=== PATIENT | male | born 1965 | race Hispanic/Latino ===

== ENCOUNTER 2025-01-10 14:43 | Outpatient (CLI) | payer OTHER, SELFPAY ==
--- NOTE | ~2025-01-10 | CT_ITS ---
CT Scan of the Chest without Contrast: Clinical Indication: Lung cancer screening, nicotine dependence Technique: Contiguous sections were acquired throughout the chest without intravenous contrast. Dose reduction technique was used on this scan by utilizing automated exposure control and iterative recon struction technique. The dose-length product (DLP) was 392.61 mGy-cm. Findings: There is no evidence of any significant mediastinal, hilar or axillary lymphadenopathy. The mediastin al soft tissues appear normal. There is no evidence of pleural or pericardial effusion. There is advanced emphysema. Calcified left basilar granuloma present. Images through the upper abdomen reveal no abnormalities. Impression: Lung RADS 2: Benign appearance. 12 month follow-up screening CT advised. Advanced emphysema. Reviewed, dictated and finalized at location . Impression: Lung RADS 2: Benign appearance. 12 month follow-up screening CT advised. Advanced emphysema.
--- OUTSIDE RECORDS SUMMARY | 2025-01-10 16:41 | XMS_ITS | Encounter Summary ---
Author Organization [facility] Health Address [facility] [place] [address] Care Team Providers Care Shed Boss Name Role Phone Clarissa Horowitz MD Primary Care Provider [phone]- [phone] Awa Givens APRN-MONORAIL HELPER Primary Care Provider [phone] Amanuel Stanton PROFESSIONAL ARCHITECT-MONORAIL HELPER Unavailable [phone] Reason for Visit * Reason Onset Date Comments MEDICATION REFILL 11/10/2020 Encounter Details Date Type Department Care Team (Late st Contact Info) Description 11/10/2020 Refill [facility] Family and Community Medicine [address] [facility] 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 omeprazole (PRILOSEC) 20 MG capsule 90 capsule 1 Sig: Take 1 (one) capsule by mouth once daily ??? furosemide (LASIX) 20 MG tablet 90 tablet 3 Sig: Take 1 (one) tablet by mouth once daily ??? albuterol HFA (VENTOLIN HFA) 108 (90 Base) MCG/ACT inhaler 1 Inhaler 2 Sig: Inhale 2 (two) puffs by mouth every 6 hours as needed ??? dilTIAZem coated beads 24hr (CARDIZEM CD) 120 MG capsule 90 capsule 0 Sig: Take 1 (one) capsule by mouth once daily Do not crush or chew. Allergies Allergen Reactions ??? Morphine Other Violent behavior Last Refill:12/20/2019,02/04/2020,07/29/2020,08/14/2020 Qty Dispense:90,90,1inhal,90 # of Refills:1,3,2,0 Last OV:08/22/2020 Next OV:none documented in this encounter Plan of Treatment Not on file documented as of this encounter Visit Diagnoses Not on filedocumented in this encounter Care Teams Shed Boss Relationship Specialty Start Date End Date Clarissa Horowitz MD PCP - General 04/17/19 12/31/21 Awa Givens APRN-CATHRYN PCP - General 01/01/22 Amanuel Stanton APRN-MONORAIL HELPER [address] [place] [phone] PCP - Attributed-BCBS Medicaid [place] 11/24/23 documented as of this encounter
--- OUTSIDE RECORDS SUMMARY | 2025-01-10 16:41 | XMS_ITS | Encounter Summary ---
Author Organization [facility] Health Address [facility] [place] [place] [address] Care Team Providers Care Yard Associate Name Role Phone Clarissa Horowitz MD Primary Care Provider [phone]- [phone] Awa Givens APRN-EQUIPMENT OPERATOR/LABORER Primary Care Provider [phone] Amanuel Stanton PIZZA DELIVERY-EQUIPMENT OPERATOR/LABORER Unavailable [phone] Reason for Visit * Reason Onset Date Comments MEDICATION REFILL 01/24/2021 Encounter Details Date Type Department Care Team (Late st Contact Info) Description 01/24/2021 Refill [facility] [address] [place] [address] Edwin Velazquez MD [address] OF PULMONARY/[place] [address] MEDICATION REFILL Social History Tobacco Use Types [...] on file 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 Gender Identity Not on file Sexual Orientation Not on file 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
--- OUTSIDE RECORDS SUMMARY | 2025-01-10 16:41 | XMS_ITS | Encounter Summary ---
Author Organization [facility] Health Address [address] [place] [address] Care Team Providers Care Case Technician Name Role Phone Clarissa Horowitz MD Primary Care Provider [phone] Awa Givens APRN-SIDE LASTER STAPLE Primary Care Provider [phone] Amanuel Stanton VERTICA ARCHITECT-SIDE LASTER STAPLE Unavailable [phone] Reason for Visit * Reason Onset Date Comments MEDICATION REFILL 12/06/2020 Encounter Details Date Type Department Care Team (Late st Contact Info) Description 12/06/2020 Refill [facility] Family and Community Medicine [address] [facility] 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 omeprazole (PRILOSEC) 20 MG capsule 90 capsule 3 Sig: Take 1 (one) capsule by mouth once daily ??? furosemide (LASIX) 20 MG tablet 90 tablet 3 Sig: Take 1 (one) tablet by mouth once daily ??? albuterol HFA (VENTOLIN HFA) 108 (90 Base) MCG/ACT inhaler 1 Inhaler 3 Sig: Inhale 2 (two) puffs by mouth every 6 hours as needed ??? loratadine (CLARITIN) 10 MG tablet 90 tablet 3 Sig: Take 1 (one) tablet by mouth once daily ??? rosuvastatin (CRESTOR) 10 MG tablet 90 tablet 4 Sig: Take 1 (one) tablet by mouth once daily Allergies Allergen Reactions ??? Morphine Other Violent behavior Last Refill:11/11/2020 Qty Dispense:90,901 inhal,90,90 # of Refills:3,3,3,3,4 Last OV:08/22/2020 Next OV:none documented in this encounter Plan of Treatment Not on file documented as of this encounter Visit Diagnoses Diagnosis Other hyperlipidemia documented in this encounter Care Teams Case Technician Relationship Specialty Start Date End Date Clarissa Horowitz MD PCP - General 04/17/19 12/31/21 Awa Givens APRN-SIDE LASTER STAPLE PCP - General 01/01/22 Amanuel Stanton APRN-SIDE LASTER STAPLE [facility] [place] [address] PCP - Attributed-BCBS Medicaid [place] 11/24/23 documented as of this encounter
--- OUTSIDE RECORDS SUMMARY | 2025-01-10 16:41 | XMS_ITS | Encounter Summary ---
Author Organization [facility] Health Address [address] [facility] [place] [address] Care Team Providers Care Domestic Helper Name Role Phone Awa Givens Primary Care Provider [phone] Amanuel Stanton Unavailable [phone] Encounter Details Date Type Department Care Team (Late st Contact Info) Description 12/01/2022 Telephone [facility] - Centralized Scheduling [address] [place] [address] Awa Givens APRN-CNP [address] [address] Social History Tobacco Use Types Packs/Day Years Used Date Smoking Tobacco: Every Day Cigarettes 1.5 46.5 Started: 1976 Smokeless Tobacco: Never Comments:age 11/12-current, ave 1 ppd up to 2 ppd 11/13/22 Lung Cancer Screening Counseling Shared Decision Making Visit Documentation Alcohol Use Standard Drinks/Week Comments No 0 (1 standard drink = 0.6 oz pur e alcohol) special occasions PHQ-2 Answer Date Recorded PHQ2 TOTAL SCORE 0 11/13/2022 Sex and Gender Information Value Date Recorded Sex Assigned at Not on file Legal Sex Male 5:16 PM SHUTTLE HAND Gender Identity Not on file Sexual Orientation Not on file 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 documented in this encounter Plan of Treatment Not on file documented as of this encounter Visit Diagnoses Not on filedocumented in this encounter Care Teams Domestic Helper Relationship Specialty Start Date End Date Awa Givens APRN-CNP PCP - General 01/01/22 Amanuel Stanton APRN-CNP [address] [place] [phone] PCP - Attributed-BCBS Medicaid [place] 11/24/23 documented as of this encounter
--- OUTSIDE RECORDS SUMMARY | 2025-01-10 16:41 | XMS_ITS | Continuity of Care Document ---
Author Organization [facility] Address [address] [address] [place] [address] Phone Care Team Providers Care Senior Service Aide Name Role Phone Artur Covington MD Unavailable Unavailable Allergies, Adverse Reactions, Alerts Substance Reaction Status Criticality No Known Allergies Active No Inform ation Medications Medication Instructions Dosage Effective Dates (start - stop) Status Comments albuterol sulfate 2.5 mg/3 mL (0.083 %) solution for nebulization inhale 3 milliliter by nebulization route every 6 hours as needed 2.5 MG - Active PRN for sob diltiazem ER (XR/XT) 180 mg capsule,extended release 24 hr, controlled take 1 capsule by oral route every day 180 MG - Active furosemide 20 mg tablet take 1 tablet by oral route every day 20 MG - Active lisinopril 2.5 mg tablet take 1 tablet by oral route every day 2.5 MG - Active omeprazole 20 mg capsule,delayed release take 1 capsule by oral route every day before a meal 20 MG - Active Crestor 20 mg tablet take 1 tablet by or al route every day 20 MG - Active Spiriva with HandiHaler 18 mcg and inhalation capsules inhale by inhalation route every day the contents of one capsule (18 mcg) using 2 inhalations via handihaler 0.00 - Active Claritin 10 mg tablet take 1 tablet by o ral route every day 10 MG - Active albuterol sulfate HFA 90 mcg/actuation aerosol inhaler inhale 1 puff by inhalation route every 4 - 6 hours as needed as needed 1 puff - Active PRN for sob Procedures Procedure Date OFFICE/OUTPATIENT VISIT, EST OFFICE/OUTPATIENT VISIT, EST OFFICE/OUTPATIENT VISIT, EST PREV VISIT, NEW, AGE 40-64 Advance Directives Directive Yes / No Effective Date File Name No Information Encounters Encounter Description Practice Location Reason(s) For Visit Diagnoses Date Provider Providers Copied on Encounter OFFICE/OUTPA TIENT VISIT, [facility], [address], [place], [place], [id number], tel:[phone] [facility] GERD1 (chief complaint) COPD1 (chief complaint) HTN (chief complaint) sleep apnea1 (chief complaint) GERD w/o esophagitisCardiomy opathyCentrilobular emphysemaObstructiv e sleep apnea hypopneaMixed hyperlipidemia Adria Isaac [address], [place], [place], [id number] , [place]. tel:[phone] OFFICE/OUTPA TIENT VISIT, [facility], [address], [place], [place], [id number], [place] tel:[phone] [facility] HLP (chief complaint) glucose1 (chief complaint) polycythem ia1 (chief complaint) cardiomyop athy1 (chief complaint) GERD1 (chief complaint) COPD1 (chief complaint) Mixed hyperlipidemiaHyper glycemiaSecondary polycythemiaFolate deficiencyGERD w/o esophagitisCentrilo bular emphysemaCardiomyop athy Adria Isaac [address], [place], [place], [id number] , [place]. tel:[phone] OFFICE/OUTPA TIENT VISIT, [facility], [address] [place], [id number], [place] tel:[phone] [facility] COPD1 (chief complaint) heart1 (chief complaint) GERD1 (chief complaint) Centrilobular emphysemaCardiomyop athyGERD w/o esophagitis 5 Adria Isaac [address], [place], [place], [address] , [place]. [phone] PREV VISIT, NEW, AGE 40-64 [facility], [address], [place], [place], [address], tel:[phone] [facility] Medicine physical (chief complaint) Encounter for general adult medical examination without abnormal findings 5 Adria Siddiqui. [address], [place], [place], [address] , [place]. tel:[phone] Family History Family Member Type Diagnosis Age At Onset Father Problem Alive and well Sister Problem Diabetes mellitus Mother Problem of DM complication 66 Payers Payer name Insurance type Covered green party ID Mendy mendoza(s) [facility] CI [id number] Social History Type Description Quantity Date Captured Comments Alcohol Use Details No Caffeine Use Details Unknown Tobacco Use Status Heavy cigarette smok er (20-39 cigs/day) Smoking Status Heavy tobacco smoker Sex Male Vital Signs Date / Time: Height Weight BMI Pulse Rate Blood Pressure Temperature Respiratory Rate Body Surface Area Head Circumference BMI percentile Pulse Ox Inhaled Ox 5:22 PM 71.00 in 286.20 lbs 39.9 2 kg/m eter (2) 97 /min 120/68 mm[Hg] 98.2 F 16 /min Chief Complaint And Reason For Visit From encounter dated '12/27/2024 17:16'. GERD1 (chief complaint). Description: Pt has chronic GERD Pt doing ok with omeprazole. Pt has not scheduled for EGD yet COPD1 (chief complaint). Description: Pt has COPD due to smoking Pt uses spiriva daily. Pt needs albuterol neb refilled. Pt denies any hemoptysis, cough. Pt feels sob frequently HTN (chief complaint). Description: Pt has HTN with cardiomyopathy. Pt is on diltiazem lasix and lisinopril. Pt denies any chest pain Pt has kianna with cardiology next week sleep apnea1 (chief complaint). Description: Pt has sleep apnea Pt uses cpap nightly and doing ok Plan Of Treatment Date Type Action Status Referral Referred To: Medhat MOMIN, Irma Rich [address] [facility]
[address] [place], [place], [id number] Ordered: Referrals: Medhat MOMIN, Irma Rich. Evaluate and treat ordered Referral Ordered: CT THORAX W/O DYE ordered Referral Referred To: Nathen Black [address] [place], [phone] Ordered: Referrals: Nathen Black. Evaluate and treat ordered Referral Ordered: Cardiology (related to Encounter for general adult medical examination without abnormal findings) ordered Referral Ordered: Pulmonology (related to Encounter for general adult medical examination without abnormal findings) ordered Referral Ordered: Referrals: Cardiology. Evaluate and treat ordered Referral Ordered: OPERATIVE UPPER GI ENDOSCOPY ordered Referral Ordered: Referrals: Pulmonology. Evaluate and treat ordered History Of Present Illness Encounter Date Complaint History Of Prese nt Illness GERD1 Pt has chronic G ERD Pt doing ok with omeprazole. Pt has not scheduled for EGD yet COPD1 Pt has COPD due to smoking Pt uses spiriva daily. Pt needs albuterol neb refilled. Pt denies any hemoptysis, cough. Pt feels sob frequently HTN Pt has HTN with cardiomyopathy. Pt is on diltiazem lasix and lisinopril. Pt denies any chest pain Pt has kianna with cardiology next week sleep apnea1 Pt has sleep music engineer ea Pt uses cpap nightly and doing ok COPD1 Pt has not start ed spiriva yet .Pt is using left over trelegy which is not covered by insurance. Pt denies any worsening sob GERD1 Pt has chronic G ERD. Pt takes omeprazole and doing ok cardiomyopathy1 Pt has cardiomyo any. Pt is on lisinopril, lasix and diltiazem Pt has cardiomyopathy. Pt denies any chest pain Pt has not made kianna with cardiology yet. Pt is slightly tachycardic today. Pt sam any palpitation polycythemia1 pt has polycythe lanie. Pt has sleep apnea and he uses cpap nightly. pt feels more energy and less snoring glucose1 Pt has mildly h igh glucose and low folate .Pt denies any polyuria, polydipsia. HLP Pt has HLP Pt is not on any diet COPD1 Pt has COPD Pt d id not mushroom picker spiriva yet Pt has been using albuterol MDI and neb treatment frequently. Pt has not made kianna with pulmonary yet GERD1 Pt has chronic G ERD pt is on omeprazole and doing ok Pt has not set up EGD yet heart1 Pt has cardiomyo any. Pt is on lisinopril, lasix and diltiazem Pt has cardiomyopathy. Pt denies any chest pain Pt has not made kianna with cardiology yet. Pt is slightly tachycardic today. Pt sam any palpitation physical Pt needs annual physical. Pt has COPD. Pt is on trelegy, albuterol PRn Pt used to see pulmonary Pt has chronic GERD Pt takes omeprazole and doing ok Pt has HTn and LE edema Pt takes lisinopril and lasix and diltiazem. Pt has enlarged heart and he used to see intraoperative neuro tech. Pt has not seen his PCP and his intraoperative neuro tech and pulmonary doctor for more than one year due to insurance issue. Pt has not been on any of medication for a while due to insurance issue pt denies any chest pain or sob Instructions Date Instruction Additional Infor mation No Information Assessments Type Assessment Date assessment GERD w/o esophagitis assessment Cardiomyopathy assessment Centrilobular emphysema 025 assessment Obstructive sleep apnea hypopnea assessment Mixed hyperlipidemia Mental Status Date Cognitive Assessment Orientation - [place] ed to time, place, person, situation.
--- OUTSIDE RECORDS SUMMARY | 2025-01-10 16:41 | XMS_ITS | Encounter Summary ---
Author Organization [facility] Health Address [address] [facility] [place] [address] Care Team Providers Care Dial Painter Name Role Phone Clarissa Horowitz MD Primary Care Provider [phone] Awa Givens APRN-COSMETICS PRESSER Primary Care Provider [phone] Amanuel Stanton CANOE BUILDER-COSMETICS PRESSER Unavailable [phone] Reason for Visit * Reason Onset Date Comments MEDICATION REFILL 01/24/2021 Encounter Details Date Type Department Care Team (Late st Contact Info) Description 01/24/2021 Refill [facility] Family and Community Medicine [address] [facility] 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
--- OUTSIDE RECORDS SUMMARY | 2025-01-10 16:41 | XMS_ITS | Clinical Summary ---
Author Organization [facility] Address [address] [place] [address] Care Team Providers Care Hat Renovator Name Role Phone Artur Covington MD Primary Care Provider [phone] Encounters Date Type Department Care Team Description [facility]20[facility] [address] Darlene Walter, RMRosa Consult from Last 3 Months Social History Tobacco Use Types Packs/Day Years Used Date Smoking Tobacco: Never Assessed Sex and Gender Information Value Date Recorded Sex Assigned at Not on file Legal Sex Male 7:37 PM CDT Gender Identity Not on file Sexual Orientation Not on file Plan of Treatment Health Maintenance Due Date Last Done Comments Colorectal Cancer Screening Colonoscopy (10 Years) 1967 Annual Physical 12/13/1970 Hepatitis C 12/13/1985 DTaP, Tdap and Td Vaccines ( 1 - Tdap) 12/13/1986 Hepatitis B Vaccines (1 of 3 - 19+ 3-dose series) 12/13/1986 Pneumococcal Vaccine: 50+ Ye ars (1 of 1 - PCV) 12/13/2017 Zoster Vaccines (1 of 2) 12/13/2017 COVID-19 Vaccine (2023-2 5 season) 2024 Meningococcal B Vaccine Aged Out No l onger eligible based on patient's age to complete this topic Meningococcal Vaccine Aged Out No jeff clarisse eligible based on patient's age to complete this topic RSV Immunizations Under 20 Months Aged Out No longer eligible based on patient's age to complete this topic Insurance [facility] C/O PROVIDER [place] [id number] Care Teams Hat Renovator Relationship Specialty Start Date End Date Artur Covington MD [address] [place] [address] PCP - General FAMILY PRACTICE 10/20/24
--- OUTSIDE RECORDS SUMMARY | 2025-01-10 16:41 | XMS_ITS | Encounter Summary ---
Author Organization [facility] Health Address [address] [place] [address] Care Team Providers Care Assurance Senior Manager Name Role Phone Awa Givens Primary Care Provider [phone] Amanuel Stanton Unavailable [phone] Encounter Details Date Type Department Care Team (Late st Contact Info) Description 12/08/2022 Telephone [facility] - Family Medicine [address] [place] [address], [facility] [place] [address] Awa Givens APRN-CNP [address] [place] [phone] Social History Tobacco Use Types Packs/Day Years [...] on file 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 lisinopril (Prinivil; Zestril) 5 MG tablet 90 tablet 1 Sig: Take 1 (one) tablet by mouth once daily Allergies Allergen Reactions ??? Morphine Other Violent behavior Last Refill:05/14/2022 Qty Dispense:90 # of Refills:1 Last OV:11/13/2022 Next OV:none * Telephone Encounter - Sophia Figueroa - 12/08/2022 1:06 PM CDT Patient called in requesting a Med refill. Drug type: lisinopril (Prinivil; Zestril) 5 MG tablet Pharmacy: [id number] [facility] [id number] Patient call back number: [phone] or Kimmy [phone] documented in this encounter Plan of Treatment Not on file documented as of this encounter Visit Diagnoses Diagnosis Essential hypertension documented in this encounter Care Teams Assurance Senior Manager Relationship Specialty Start Date End Date Awa Givens APRN-CNP PCP - General 01/01/22 Amanuel Stanton APRN-CNP [address] [place] [phone] PCP - Attributed-BCBS Medicaid [place] 11/24/23 documented as of this encounter
--- OUTSIDE RECORDS SUMMARY | 2025-01-10 16:41 | XMS_ITS | Encounter Summary ---
Author Organization [facility] Health Address [facility] [place] [address] Care Team Providers Care Laser Machine Operator Name Role Phone Clarissa Horowitz MD Primary Care Provider [phone]- [phone] Awa Givens APRN-PREFITTER Primary Care Provider [phone] Amanuel Stanton GIS DEVELOPER-PREFITTER Unavailable [phone] Encounter Details Date Type Department Care Team (Late st Contact Info) Description 12/24/2020 Telephone [facility] [address] [place] [address], [place] [id number] Ludmila Garcia MD [address] [place] [address] 2L DIV OF PLASTIC SURGERY [place], [place] [id number] Social History Tobacco Use Types Packs/Day Years [...] on file Legal Sex Male 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 Thank you so much! documented in this encounter Plan of Treatment Not on file documented as of this encounter Visit Diagnoses Not on filedocumented in this encounter Care Teams Laser Machine Operator Relationship Specialty Start Date End Date Clarissa Horowitz MD PCP - General 04/17/19 12/31/21 Awa Givens APRN-PREFITTER PCP - General 01/01/22 Amanuel Stanton APRN-PREFITTER [facility] [place] [address] PCP - Attributed-[place] 11/24/23 documented as of this encounter
--- OUTSIDE RECORDS SUMMARY | 2025-01-10 16:41 | XMS_ITS | CONTINUITY OF CARE DOCUMENT ---
Author Name alfredo fuentes Address Unknown Organization [facility] Office Address [address] [place] [address] [address] [place] [address] Phone [phone] Care Team Providers Care Diesel Locomotive Firer/Fireman Name Role Phone Joan MOMIN, [place] Unavailable MARVIN WEAVER MD Unavailable [phone] MARVIN WEAVER MD Unavailable [phone] INSURANCE PROVIDERS Payer name Policy type / Coverage type [place] red constitution party ID [facility] [id number]
--- OUTSIDE RECORDS SUMMARY | 2025-01-10 16:41 | XMS_ITS | Encounter Summary ---
Author Organization [facility] Health Address [facility]3 [facility] [place] [address] Care Team Providers Care Patrol Police Sergeant Name Role Phone Clarissa Horowitz MD Primary Care Provider [phone]- [phone] Awa Givens APRN-CRM TECHNICAL LEAD Primary Care Provider [phone] Amanuel Stanton APRN-CRM TECHNICAL LEAD Unavailable [phone] Reason for Visit * Reason Onset Date Comments MEDICATION REFILL 12/06/2020 Encounter Details Date Type Department Care Team (Late st Contact Info) Description 12/06/2020 Refill [facility] [address] [facility] 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
--- OUTSIDE RECORDS SUMMARY | 2025-01-10 16:41 | XMS_ITS | Encounter Summary ---
Author Organization [facility] Health Address [facility] [facility] [place] [address] Care Team Providers Care Company Driver Name Role Phone Clarissa Horowitz MD Primary Care Provider [phone] Awa Givens APRN-SUPERVISOR ACOUSTICAL TILE CARPENTERS Primary Care Provider [phone] Amanuel Stanton SAFE DEPOSIT ATTENDANT-SUPERVISOR ACOU[employer] CARPENTERS Unavailable [phone] Reason for Visit * Reason Onset Date Comments MEDICATION REFILL 12/06/2020 Encounter Details Date Type Department Care Team (Late st Contact Info) Description 12/06/2020 Refill [facility] [address] [facility] [address] [place] [address] Clarissa Horowitz MD [address] [facility] [address] 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
--- OUTSIDE RECORDS SUMMARY | 2025-01-10 16:41 | XMS_ITS | Encounter Summary ---
Author Organization [facility] Health Address [facility]3 [facility] [place] [address] Care Team Providers Care Assistant Commissioner Name Role Phone Clarissa Horowitz MD Primary Care Provider [phone]- [phone] Awa Givens APRN-FANCY WIRE DRAWER Primary Care Provider [phone] Amanuel Stanton PICTURE BOOKER-FANCY WIRE DRAWER Unavailable [phone] Reason for Visit * Reason Onset Date Comments MEDICATION REFILL 11/10/2020 Encounter Details Date Type Department Care Team (Late st Contact Info) Description 11/10/[address] 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
--- OUTSIDE RECORDS SUMMARY | 2025-01-10 16:41 | XMS_ITS | Encounter Summary ---
Author Organization [facility] Health Address [address] [facility] [place] [address] Care Team Providers Care Grinding Supervisor Name Role Phone Clarissa Horowitz MD Primary Care Provider [phone]- [phone] Awa Givens APRN-AIR BAG CURER Primary Care Provider [phone] Amanuel Stanton ORACLE ENGINEER-AIR BAG CURER Unavailable [phone] Reason for Visit * Reason Onset Date Comments MEDICATION REFILL 11/12/2020 Encounter Details Date Type Department Care Team (Late st Contact Info) Description 11/12/2020 Refill [facility] [address] [facility] 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
--- OUTSIDE RECORDS SUMMARY | 2025-01-10 16:41 | XMS_ITS | Clinical Summary ---
Author Organization [facility] Address [address] [place] [address] Care Team Providers Care Brine Tank Tender Name Role Phone Awa Givens APRN-CATHRYN Primary Care Provider [phone] Amanuel Stanton APRN-CATHRYN Unavailable [phone] Source Comments [facility],non-owned Affiliates and Associated Physician Practices is amultiple site organization consisting of ambulatory clinics and hospital sitesin [place], [place], [place] and [place]. This disclosure is being madepursuant to the Care Everywhere program and may not contain all information available regarding this patient. Last updated 18.[facility] Allergies Active Allergy Reactions Criticality Noted Date Comments Morphine Other Low 03/22/2015 Violent behavior Medications * Be aware that medications may not be up to date on this document. Alwaysverify current medications with the patient. albuterol HFA (VENTOLIN HFA) 108 (90 BASE) MCG/ACT inhaler Inhale 2 puffs by mouth q4h PRN (Wheezing). 18 g 11 7 Active fluticasone propionate (FLONASE) 50 MCG/ACT nasal spray USE 1 SPRAY INTO EACH NOSTRIL TWICE DAILY 0 Active albuterol (Proventil;Ventol in) (2.5 MG/3ML) 0.083% nebulizer solutionIndicatio ns:Bronchospasm Inhale 2.5 (two and one-half) mg by mouth 4 times daily as needed for Shortness of Breath or Wheezing Reasons: Spasm of Lung Air Passages 75 mL 11 2 Active rosuvastatin (Crestor) 20 MG tablet Take 1 (one) tablet by mouth once daily 90 tablet 3 Active famotidine (Pepcid) 20 MG tablet Take 1 (one) tablet by mouth at bedtime 90 tablet 4 3 Active omeprazole (PriLOSEC) 20 MG capsule Take 1 (one) capsule by mouth once daily 90 capsule 3 Active loratadine (Claritin) 10 MG tablet TAKE 1 TABLET BY MOUTH EVERY DAY 90 tablet 1 3 Active Fluticasone-Umecl idin-Vilant (Trelegy Ellipta) 100-62.5-25 MCG/ACT Inhale 1 (one) puff by mouth once daily 2 Each 5 3 Active albuterol HFA (Proventil; Ventolin; Proair) 108 (90 Base) MCG/ACT inhalerIndication s:Chronic obstructive pulmonary disease, unspecified COPD type (HCC) Inhale 2 (two) puffs by mouth every 6 hours as needed 18 g 11 3 Active dilTIAZem coated beads 24hr (Cardizem CD) 120 MG capsule TAKE 1 CAPSULE BY MOUTH EVERY DAY. DO NOT CRUSH OR CHEW 90 capsule 3 3 Active furosemide (Lasix) 20 MG tablet TAKE 1 TABLET BY MOUTH EVERY DAY 90 tablet 1 3 Active lisinopril (Prinivil; Zestril) 5 MG tabletIndications :Essential hypertension TAKE 1 TABLET BY MOUTH EVERY DAY 90 tablet 1 3 Active Active Problems Problem Noted Date Diagnosed Date Chronic bronchitis, unspecified chronic bronchit is type 05/14/2022 Cubital tunnel syndrome on left 11/13/2020 Arthritis of carpometacarpal (CMC) joint of left thumb 11/13/2020 Bilateral carpal tunnel syndrome 11/14/2019 Chronic fatigue 12/06/2017 Nocturia 12/06/2017 Tubular adenoma of colon 09/08/2017 Overview (10/25/2017): Repeat colonoscopy recommended July 2018 Mononeuropathy of upper extremity 09/08/2017 Diverticulosis of large intestine without hemorr sushil 09/08/2017 Overview (12/06/2017): Overview: Confirmed on colonoscopy Radiculopathy of cervical region 06/22/2017 Overview (10/25/2017): S/p surgical intervention Lv hypertrophy, hypertensive, without heart fail ure 03/10/2017 Overview (12/06/2017): Overview: EF 58% on 01/2017. Shunt, possibly from PFO noted. 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 Seeing cards Right to left cardiac shunt 07/24/2016 Overview (12/06/2017): Overview: Noted on Echo in 2014. Seeing cards Tobacco abuse 05/20/2016 Hyperlipidemia 03/25/2016 Obstructive sleep apnea 02/03/2016 Overview (10/25/2017): Severe RAPHAEL with hypoxemia. Patient to be on CPAP with side flow O2 Chronic obstructive pulmonary disease 02/03/2016 Prediabetes 10/17/2015 Other forms of dyspnea 05/17/2015 Gastro-esophageal reflux disease without esophag itis 01/30/2014 Guyon syndrome, left Immunizations Immunization Administration Dates Next Due [employer] primary monoval ent 12+ yr 0.3mL Purple cap 03/10/2021,02/17/2021 FLU VACCINE TRI IIV3 SPLIT PF IM (FLUVIRIN) 05/27 INFLUENZA VACCINE 06/05/2015 INFLUENZA VACCINE, CELL CULT URE, QUADR. (FLUCELVAX QUADRIVALENT; 6MO+) (CCIIV4) 05/19/2020,05/21/2019 INFLUENZA VACCINE, QUADR. (F LUZONE; FLULAVAL; FLUARIX; AFLURIA QUADRIVALENT; 6MO+), 0.5 ML (IIV4) 05/03/2023 PNEUMOCOCCAL PCV20 CONJ VAC IM 05/03/2023,2022 PNEUMOCOCCAL PPSV23 06/05/2015 TDAP (7yrs+) 03/26/2008 Family History Medical History Relation Name Comments Other Brother carpal tunnel; Status: Alive Seizures Daughter 1 Status: Alive None Known Daughter 2 Status: Alive None Known Daughter 3 Status: Alive Heart Disease Father Status: Alive Cancer Maternal Grandfather lung; S tatus: Asthma Mother Status: d CVA Mother Diabetes Mother Diabetes Sister 1 Status: Alive Other Sister 2 carpal tunnel; Status: Alive Other Son 1 cyst on brain; Status: Alive Asthma Son 2 Status: Alive None Known Son 3 Status: Alive Thyroid Disease Neg Hx Relation Name Status Comments Brother Alive Daughter 1 Alive Daughter 2 Alive Daughter 3 Alive Father Alive Maternal Grandfather Mother Sister 1 Alive Sister 2 Alive Son 1 Alive Son 2 Alive Son 3 Alive Social History Tobacco Use Types Packs/Day Years Used Date Smoking Tobacco: Every Day Cigarettes 2 46.5 Started: 1978 Smokeless Tobacco: Never Tobacco Cessation:Ready to Q uit: Not Asked; Counseling Given: Not Answered Comments:age [age]-current, ave 1 ppd up to [...] on file Legal Sex Male 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 Gender Identity Not on file Sexual Orientation Not on file 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 on file Not on file Last Filed Vital Signs Vital Sign Reading Time Taken Comments Blood Pressure 108/76 05/03/2023 3:38 PM CDT Pulse 98 05/03/2023 3:38 PM CDT Temperature 36.3 C (97.3 F) 11/13/2022 11:00 AM CDT Respiratory Rate 17 05/03/2023 3:38 PM CDT Oxygen Saturation 88% 05/03/2023 3:38 PM CDT Inhaled Oxygen Concentration 21% 02/07/2021 1 2:55 PM CDT Weight 120.7 kg (266 lb) 05/03/2023 3:38 PM CDT Height 180.3 cm (5' 11) 05/03/2023 3:38 PM CDT Body Mass Index 37.1 05/03/2023 3:38 PM CDT Plan of Treatment Health Maintenance Due Date Last Done Comments COLOGUARD (AGES 45-75) - COLON CA SCREENING 1965 CT COLONOGRAPHY - COLON CA SCREENING 1965 FIT - COLON CA SCREENING 1965 FLEX SIG - COLON CA SCREENING 1965 HEPATITIS B VACCINE (1 of 3 - 19+ 3-dose series) 12/13/1986 ZOSTER VACCINE (1 of 2) 12/13/2017 DTAP/TDAP/TD VACCINES (2 - Td or Tdap) 03/26/2018 03/26/2008 LUNG CANCER SCREENING 11/25/2023 11/24/2022 COVID-19 VACCINE (3 - season) 2024 03/10/2021, 02/17/2021 DEPRESSION SCREENING 07/26/2024 11/13/2022 INFLUENZA VACCINE (Season Ended) 2025 05/03/2023, 05/19/2020, 05/21/2019, Additional history exists SCREENING FOR DIABETES 11/13/2025 , 11/13/2022, 08/22/2020, Additional history exists COLON MONITORING 01/29/2031 01/29/2021, 01/29/2021 COLONOSCOPY - COLON CA SCREENING 01/29/2031 01/29/2021, 01/29/2021 Colorectal Cancer Screening 01/29/2031 HEPATITIS C SCREENING Completed 08/22/2020 HIV SCREENING Completed 11/13/2022 PNEUMOCOCCAL VACCINE 50+ Completed 023, 01/21/2023, 06/05/2015 HIB VACCINE Aged Out No longer eligi ble based on patient's age to complete this topic HPV VACCINE Aged Out No longer eligi ble based on patient's age to complete this topic MENINGOCOCCAL (Group B) VACCINE SHARED DECISION-MAKING Aged Out No longer eligible based on patient's age to complete this topic MENINGOCOCCAL GROUPS A/C/Y/W VACCINE Aged Out No longer eligible based on patient's age to complete this topic Procedures Procedure Name Priority Date/Time Associated Diagnosis Comments CT LUNG SCREEN LOW DOSE Routine 11/24/2022 3:45 PM CDT Tobacco abuse HEMOGLOBIN A1C Routine 11/13/2022 12:19 PM CDT Prediabetes Essential hypertension HIV-1 HIV-2 ANTIBODY + HIV P24 AG PANEL Routine 11/13/2022 12:19 PM CDT Encounter for health-related screening ENDOSCOPY, COLON, SCREENING Routine 01/29/2021 11:11 AM CDT HEPATITIS C AB SCREEN RFLX NAAT QUANT Routine 08/22/2020 2:19 PM WRAPAROUND FACILITATOR Well adult exam from Last 3 Months or Most Recently Relevant to Health Maintenance Results * CT LUNG CANCER SCREEN LOW DOSE (11/24/2022 3:45 PM CDT) Anatomical Region Laterality Modality Chest Computed Tomogra phy 11/24/2022 4:51 PM CDT Impressions 11/24/2022 5:02 PM CDT Impression 1. No acute process identified in the chest. No suspicious pulmonary nodules, lung RADS 1 (benign). Recommend follow-up with annual low-dose CT. ACR Lung-RADS Category/Recommendations: 0: Need prior comparisons or additional images 1: Negative: 12 month follow up LDCT (Low Dose CT) 2: Benign Appearin month follow up LDCT 3: Probably Benign: 6 month follow up LDCT 4A: Suspicious: 3 month follow up LDCT (or immediate PET if >7mm solid component) 4B: Suspicious: Immediate Chest CT or PET if >7mm solid component 4X: Cat 3 or 4A nodules with additional suspicious findings Modifier-S: Significant NON-lung cancer findings Modifier-C: Prior treated Lung Cancer. For details of the ACR Lung-RADS program, categories and recommendations: 1) https://www.acr.org/Quality-Safety/Resources/LungRADS 2) Internet search: Lung-RADS Lung Cancer Screening 3) Contact [facility] thoracic nurse coordinator ([phone]) > Interpreting Provider: Deric Bryant MD on 11/24/2022 5:02 PM Narrative 11/24/2022 5:02 PM CDT PROCEDURE: CT LUNG SCREEN LOW DOSE DATE/TIME OF EXAM: 11/24/2022 3:45 PM CLINICAL INFORMATION: None relevant/not provided if blank. Indication: Z72.0: Tobacco abuse COMPARISON: CT chest from 02/06/2014. TECHNIQUE: CT of the chest was performed without intravenous contrast utilizing low dose protocol. FINDINGS: The trachea is patent and midline. There is no significant mediastinal, hilar or axillary lymphadenopathy. Calcified left hilar and infrahilar lymph nodes represent sequela of prior granulomatous disease. The aorta is normal in course and caliber. Minimal atherosclerotic calcifications are noted in the aortic arch. The pulmonary artery is normal in caliber. The lungs are emphysematous. A nodular density is noted in the lingula (image 112, series 6), similar to prior examination from 2013, likely represents nodular scarring. A calcified granuloma is present in the left lower lobe. No focal consolidations are present. There is no pleural effusion or pneumothorax. The cardiac chambers are normal in size. No pericardial fluid or thickening is present. Bones and Chest Wall: Bone windows demonstrate no suspicious lytic or blastic lesions. The visible osseous structures are intact. Upper Abdomen: The visible portions of the upper abdominal viscera appear normal. Procedure Note Charlotte Bryant MD - 11/24/2022 PROCEDURE: CT LUNG SCREEN LOW DOSE DATE/TIME OF EXAM: 11/24/2022 3:45 PM CLINICAL INFORMATION: None relevant/not provided if blank. Indication: Z72.0: Tobacco abuse COMPARISON: CT chest from 02/06/2014. TECHNIQUE: CT of the chest was performed without intravenous contrast utilizing low dose protocol. FINDINGS: The trachea is patent and midline. There is no significant mediastinal, hilar or axillary lymphadenopathy. Calcified left hilar and infrahilar lymph nodes represent sequela of prior granulomatous disease. The aorta is normal in course and caliber. Minimal atherosclerotic calcifications are noted in the aortic arch. The pulmonary artery isnormal in caliber. The lungs are emphysematous. A nodular density is noted in the lingula (image 112, series 6), similar to prior examination from 2013, likely represents nodular scarring. A calcified granuloma is present in theleft lower lobe. No focal consolidations are present. There is no pleural effusion or pneumothorax. The cardiac chambers are normal in size. No pericardial fluid orthickening is present. Bones and Chest Wall: Bone windows demonstrate no suspicious lytic or blastic lesions. The visible osseous structures are intact. Upper Abdomen: The visible portions of the upper abdominal viscera appear normal. Impression 1. No acute process identified in the chest. No suspicious pulmonary nodules, lung RADS 1 (benign). Recommend follow-up with annual low-doseCT. ACR Lung-RADS Category/Recommendations: 0: Need prior comparisons or additional images 1: Negative: 12 month follow up LDCT (Low Dose CT) 2: Benign Appearin month follow up LDCT 3: Probably Benign: 6 month follow up LDCT 4A: Suspicious: 3 month follow up LDCT (or immediate PET if >7mm solid component) 4B: Suspicious: Immediate Chest CT or PET if >7mm solid component 4X: Cat 3 or 4A nodules with additional suspicious findings Modifier-S: Significant NON-lung cancer findings Modifier-C: Prior treated Lung Cancer. For details of the ACR Lung-RADS program, categories andrecommendations: 1) https://www.acr.org/Quality-Safety/Resources/LungRADS 2) Internet search: Lung-RADS Lung Cancer Screening 3) Contact [facility] thoracic nurse coordinator ([phone]) > Interpreting Provider: Deric Bryant MD on 11/24/2022 5:02 PM Awa Givens APRNCATHRYN CT ORDERABLES Final Res ult * HIV-1 HIV-2 ANTIBODY + HIV P24 AG PANEL (New on 12/09) (11/13/2022 12:19 PM CDT) HIV Antigen/Antibod y 1 & 2 Non-reacti ve Non-react [place] 11/13/2022 1:32 PM CDT [facility] Comment:No Laboratory eviden ce of HIV infection. Blood BLOOD SPECIMEN / Unknown Lab Venipuncture / Unknown 11/13/2022 12:19 PM CDT 11/13/2022 12:35 PM CDT Awa Givens APRN-PRIMER POWDER BLENDER WET LAB - CHEMISTRY ORDERABLE S Final Result [facility] [address] [place] [phone], [facility] [phone] * (ABNORMAL) HEMOGLOBIN A1C (11/13/2022 12:19 PM CDT) Hemoglobin A1c 6.0(H) <=5.6 % 11/13/2022 2:59 PM CDT [facility] Estimated Average Glucose 126 mg/dL 11/13/2022 2:59 PM CDT [facility] Comment: HbA1c Interpretation: Normal : < 5.7% Pre-diabetes: 5.7-6.4% Diabetes: Equal to or greater than 6.5% Test results diagnostic of diabetes should be repeated for confirmation. Treatment target values recommended by ADA and other clinical organizations should be used to evaluate metabolic control in patients. Reference: [place] Diabetes Association, Standards of Care in Diabetes -2020 In patients 70 years and older consider HbA1c target range of 7.0-7.5% (Reference: Jose Lee et al. GRADY. 2012) The Sebia assay for the measurement of HbA1c is a National Glycohemoglobin Standardization Program (NGSP) certified method. Blood BLOOD SPECIMEN / Unknown Lab Venipuncture / Unknown 11/13/2022 12:19 PM CDT 11/13/2022 12:40 PM CDT Awa Givens ANIMAL RIDES MANAGER-PRIMER POWDER BLENDER WET LAB - CHEMISTRY ORDERABLE S Final Result [facility] [address] [place] [address], [facility] [phone] * ENDOSCOPY, COLON, SCREENING (01/29/2021 11:11 AM CDT) Report Endoscopy POC Endoscopy Department Report _ Patient Name: Slick No Procedure Date: 01/29/2021 11:11 AM Date of : 1965 Classification: Outpatient Gender: Male Ethnicity: or Race: White _ Providers: Baron Leblanc MD, Yandel Lion (Fellow) Referring MD: Clarissa Horowitz MD Procedure: Colonoscopy Indications: Screening for colorectal malignant neoplasm Medications: Monitored Anesthesia Care Description of Procedure: Pre-Anesthesia Assessment: - Prior to the procedure, a History and Physical was performed, and patient medications and allergies were reviewed. The patient's tolerance of previous anesthesia was also reviewed. The risks and benefits of the procedure and the sedation options and risks were discussed with the patient. All questions were answered, and informed consent was obtained. Prior Anticoagulants: The patient has taken no previous anticoagulant or antiplatelet agents. ASA Grade Assessment: II - A patient with mild systemic disease. After reviewing the risks and benefits, the patient was deemed in satisfactory condition to undergo the procedure. After I obtained informed consent, the scope was passed under direct vision. Throughout the procedure, the patient's blood pressure, pulse, and oxygen saturations were monitored continuously. The [id number] was introduced through the anus and advanced to the cecum, identified by appendiceal orifice and ileocecal valve. The colonoscopy was performed without difficulty. The patient tolerated the procedure well. The quality of the bowel preparation was evaluated using the BBPS ([place] Bowel Preparation Scale) with scores of: Right Colon = 2 (minor amount of residual staining, small fragments of stool and/or opaque liquid, but mucosa seen well), Transverse Colon = 3 (entire mucosa seen well with no residual staining, small fragments of stool or opaque liquid) and Left Colon = 3 (entire mucosa seen well with no residual staining, small fragments of stool or opaque liquid). The total BBPS score equals 8. The ileocecal valve, appendiceal orifice, and rectum were photographed. Significant looping in the transverse colon required patient to be put supine to reach the cecum. Findings: Hemorrhoids were found on perianal exam. A few small-mouthed diverticula were found in the sigmoid colon. Internal hemorrhoids were found during retroflexion. The exam was otherwise without abnormality. Estimated Blood Loss: Estimated blood loss: none. Complications: No immediate complications. Impression: 1) Diverticulosis in the sigmoid colon. 2) Internal and external hemorrhoids. 3) The examination was otherwise normal. 4) No specimens collected. Recommendation: - Patient has a contact number available for emergencies. The signs and symptoms of potential delayed complications were discussed with the patient. Return to normal activities tomorrow. Written discharge instructions were provided to the patient. - Resume previous diet. - Continue present medications. - Repeat colonoscopy in 10 years for screening purposes. Attending Participation: I was present and participated during the entire procedure, including non-erickson portions. Procedure Code(s): --- Professional --- G0121, Colorectal cancer screening; colonoscopy on individual not meeting criteria for high risk Diagnosis Code(s): --- Professional --- Z12.11, Encounter for screening for malignant neoplasm of colon K64.8, Other hemorrhoids K57.30, Diverticulosis of large intestine without perforation or abscess without bleeding CPT copyright 2019 [place] [employer]. All rights reserved. The codes documented in this report are preliminary and upon nurse assessor review may be revised to meet current compliance requirements. Baron Leblanc MD 01/29/2021 12:10:33 PM This report has been signed electronically. Note Initiated On: 01/29/2021 11:11 AM Number of Addenda: [address] [address] [facility] 01/29/2021 11:1 1 AM CDT us Baron Leblanc MD GI PROCEDURE ORDERABLES Edited Result - Final [facility] * HEPATITIS C AB SCREEN RFLX NAAT QUANT (08/22/2020 2:19 PM WRAPAROUND FACILITATOR) Hepatitis C Antibody Non-react [place] Non-reac tive 08/22/2020 4:18 PM WRAPAROUND FACILITATOR [facility] Comment:Hepatitis C Antibody screen indicates no serologic evidence of past or current infection with Hepatitis C Virus. Patients with unexplained liver disease who are immunocompromised or suspected of having acute Hepatitis C infection may benefit from Nucleic Acid Test (BHARATH) for Hepatitis C Viral RNA to confirm Hepatitis C status. Blood BLOOD SPECIMEN / Unknown Lab Venipuncture / Unknown 08/22/2020 2:19 PM WRAPAROUND FACILITATOR 08/22/2020 3:31 PM WRAPAROUND FACILITATOR Clarissa Horowitz MD LAB - CHEMISTRY ORDERABLES Final Result [facility] [address] [place] [address], [facility] [phone] from Last 3 Months or Most Recently Relevant to Health Maintenance Insurance [employer] [facility] Care Teams Brine Tank Tender Relationship Specialty Start Date End Date Awa Givens APRN-PRIMER POWDER BLENDER WET PCP - General 01/01/22 Amanuel Stanton APRN-PRIMER POWDER BLENDER WET [address] [place] [phone] PCP - Attributed-[employer] Medicaid [place] 11/24/23
--- OUTSIDE RECORDS SUMMARY | 2025-01-10 16:41 | XMS_ITS | Encounter Summary ---
Author Organization [facility] Health Address [facility] [facility] [place] [address] Care Team Providers Care Rheumatology Nurse Name Role Phone Clarissa Horowitz MD Primary Care Provider [phone] Awa Givens APRN-DIRECTOR OF LEADERSHIP DEVELOPMENT Primary Care Provider [phone] Amanuel Stanton OYSTER TONGER-DIRECTOR OF LEADERSHIP DEVELOPMENT Unavailable [phone] Reason for Visit * Reason Onset Date Comments MEDICATION REFILL 12/06/2020 Encounter Details Date Type Department Care Team (Late st Contact Info) Description 12/06/2020 Refill [facility] [address] [place] [address] Valeria Batres MD [address] OF PULMONARY/[place] [address] MEDICATION REFILL Social History Tobacco Use Types [...] on file 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 Gender Identity Not on file Sexual Orientation Not on file 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 on file Not on file documented as of this encounter Plan of Treatment Not on file documented as of this encounter Visit Diagnoses Diagnosis Chronic obstructive pulmonary disease, unspecified COPD type (HCC) documented in this encounter Care Teams Rheumatology Nurse Relationship Specialty Start Date End Date Clarissa Horowitz MD PCP - General 04/17/19 12/31/21 Awa Givens APRN-DIRECTOR OF LEADERSHIP DEVELOPMENT PCP - General 01/01/22 Amanuel Stanton APRN-DIRECTOR OF LEADERSHIP DEVELOPMENT [address] [place] [phone] PCP - Attributed-[employer] Medicaid [place] 11/24/23 documented as of this encounter
== END 2025-01-10 14:44 | disposition home or self-care (01) ==
PROVIDERS: PCP Emergency Medicine; Visit Provider Emergency Medicine
DX: Z12.2 Encounter for screening for malignant neoplasm of respiratory organs (principal); Z87.891 Personal history of nicotine dependence; J43.9 Emphysema, unspecified
CPT/HCPCS: 71271